=== PATIENT | female | born 1970 | race Caucasian/White ===

== ENCOUNTER 2019-02-12 08:08 | Emergency (ER) | payer MEDICAID ==
[~2019-02-12] VITALS: Ht 162.6 cm; Wt 70.5 kg
[2019-02-12 08:22] VITALS: Ht 162.6 cm; Wt 70.5 kg
[2019-02-12] MEDS ORDERED: ATIVAN1 MG PO (08:25)
[2019-02-12] MEDS ORDERED: IBUPROFEN400 MG PO (08:25)
[2019-02-12 09:17] LABS: ALBUMIN 3.8 g/dL (3.4-5.0); ALKALINE PHOSPHATASE 52 U/L (46-116); ALT (SGPT) 25 U/L (10-68); BILIRUBIN - TOTAL 0.72 mg/dL (0.2-1.3); CALC OSMOLALITY 272 mosm/kg (275-300); CALCIUM 8.7 mg/dL (8.5-10.1); CHLORIDE - SERUM 99 mmol/L (98-107); CREATININE - SERUM 0.9 mg/dL (0.6-1.3); GLUCOSE 97 mg/dL (74-106); HEMOGLOBIN 14.2 g/dL (12-16); LYMPHOCYTES 23.8 % (15-50); MCH 31.4 pg (26.0-34.0); MCHC 34.6 g/dL (31.0-37.0); MCV 90.7 fL (80.0-100.0); NEUTROPHILS 63.6 % (40-80); PLATELET COUNT 243 10x3/uL (130-400); POTASSIUM - SERUM 3.4 mmol/L (3.5-5.1); PROTEIN - SERUM 7.4 g/dL (6.4-8.2); RBC 4.52 10x6/uL (4.00-5.40); RDW 12.2 % (11.5-14.5); SODIUM 136 mmol/L (136-145); UREA NITROGEN 14 mg/dL (7-18); WBC 5.2 10x3/uL (4.8-10.8); eGFR NON AFRICAN AMERICAN 71 mL/min (90-120)
[2019-02-12 09:20] LABS: APTT 26.7 SECONDS (22.8-39.4); INR 0.96 (0.85-1.17); PROTIME 12.3 SECONDS (11.6-15.0)
[2019-02-12 09:36] LABS: CKMB 0.4 U/L (0.0-3.6); CREATINE KINASE 107 UL (21-215); MAGNESIUM - SERUM 1.6 mg/dL (1.8-2.4)
[2019-02-12 09:38] LABS: TROPONIN-I < 0.017 ng/mL (0.000-0.060)
[2019-02-12] MEDS ORDERED: IBUPROFEN800 MG PO (10:26)
[2019-02-12] MEDS ORDERED: CYCLOBENZAPRINE10 MG PO (10:26)
[2019-02-12] MEDS ORDERED: ACETAMINOPHEN500 M1 PO (10:26)
[2019-02-12 11:07] VITALS: BP 142/88
== END 2019-02-12 10:43 | disposition home or self-care (01) ==
LOC: D.ER 08:08
PROVIDERS: Family Medicine
DX: R07.89 Other chest pain (principal); S29.011A Strain of muscle and tendon of front wall of thorax, initial encounter; X58.XXXA Exposure to other specified factors, initial encounter; Y93.89 Activity, other specified; Y92.89 Other specified places as the place of occurrence of the external cause

== ENCOUNTER 2020-06-12 06:24 | Inpatient (IN) | payer MEDICAID ==
[2020-06-12] VITALS (10 sets, daily range): BP systolic 114–149; BP diastolic 68–86; BMI 27.5
[~2020-06-12] VITALS: Ht 162.6 cm; Wt 72.6 kg
[~2020-06-12 06:24] MED LIST: ACETAMINOPHEN500 M1 PO; ATIVAN1 MG PO; CYCLOBENZAPRINE10 MG PO; IBUPROFEN400 MG PO; IBUPROFEN800 MG PO
--- NOTE | 2020-06-12 06:38 | NUR ---
UA SENT TO LAB
[2020-06-12 06:53] LABS: BASOPHILS 0.1 % (0-2); EOSINOPHILS 0 % (0-7); HEMATOCRIT 43.9 % (36.0-48.0); HEMOGLOBIN 14.9 g/dL (12-16); IMMATURE GRANULOCYTES 0.2 % (0-5); LYMPHOCYTES 8.6 % (15-50); MCH 30.1 pg (26.0-34.0); MCHC 33.9 g/dL (31.0-37.0); MCV 88.7 fL (80.0-100.0); MEAN PLATELET VOLUME 9.2 fL (7.4-10.4); MONOCYTES 3.9 % (2-11); NEUTROPHILS 87.2 % (40-80); PLATELET COUNT 271 10x3/uL (130-400); RBC 4.95 10x6/uL (4.00-5.40); RDW 12.7 % (11.5-14.5); WBC 11.7 10x3/uL (4.8-10.8)
[2020-06-12 07:16] LABS: CALC OSMOLALITY 270 mosm/kg (275-300); CALCIUM 8.8 mg/dL (8.5-10.1); CARBON DIOXIDE 23.8 mmol/L (21.0-32.0); CHLORIDE - SERUM 101 mmol/L (98-107); CREATININE - SERUM 0.9 mg/dL (0.6-1.3); GLUCOSE 118 mg/dL (74-106); SODIUM 135 mmol/L (136-145); UREA NITROGEN 12 mg/dL (7-18); eGFR NON AFRICAN AMERICAN 70 mL/min (90-120)
--- NOTE | 2020-06-12 07:20 | NUR ---
ASSUMED CARE OF PT. SITTING UPRIGHT IN BED GUARDING RIGHT FLANK. RESP EVEN/UNLABORED. SKIN W/D/P. INFORMED DR MORA OF NEED FOR PAIN MED. NEW ORDERS RCVD/ADMIN
[2020-06-12 07:39] LABS: ALBUMIN 4.7 g/dL (3.4-5.0); ALKALINE PHOSPHATASE 67 U/L (30-120); ALT (SGPT) 33 U/L (10-68); AMYLASE - SERUM 47 U/L (25-115); BILIRUBIN - TOTAL 0.21 mg/dL (0.2-1.3); LIPASE 196 U/L (73-393); PROTEIN - SERUM 8.5 g/dL (6.4-8.2); TROPONIN-I < 0.017 ng/mL (0.000-0.060)
[2020-06-12 08:13] LABS: HCG URINE NEGATIVE (NEGATIVE)
[2020-06-12 08:17] LABS: BILIRUBIN NEGATIVE (NEGATIVE); KETONE NEGATIVE (NEGATIVE); NITRITE NEGATIVE (NEGATIVE); UROBILINOGEN NORMAL mg/dL (< 2)
[2020-06-12 08:18] LABS: BACTERIA FEW HPF (NONE SEEN); EPITHELIAL CELLS 0-5 /hpf (0-5); WHITE CELLS - URINE 0-5 HPF (0-4)
[2020-06-12 08:19] LABS: AMORPHOUS SEDIMENT >1+ LPF (NONE SEEN)
--- NOTE | 2020-06-12 09:31 | NUR ---
RTND FROM CT. RESTING UPRIGHT IN BED. "PAIN IS BETTER" FAMILY ATR BS
[2020-06-12 10:42] LABS: APTT 23.7 SECONDS (22.8-39.4); INR 0.9 (0.85-1.17); PROTIME 12.2 SECONDS (11.6-15.0)
--- NOTE | 2020-06-12 10:51 | NUR ---
CHEST TUBE PLACEMENT EXPL TO PT, VERB UNDER. CONSENT SIGNED/WITNESSED
--- NOTE | 2020-06-12 11:06 | NUR ---
TO IR FOR CT PLACEMENT/CONDITION STABLE
--- NOTE | 2020-06-12 12:26 | NUR ---
BACK FROM SURGERY, RIGHT SIDE CHEST TUBE IN PLACE.
--- NOTE | 2020-06-12 12:45 | NUR ---
REGULAR DIET SERVED/APPETITE GOOD
--- NOTE | 2020-06-12 13:00 | NUR ---
RESTING IN BED. C/O MILD PAIN AT REST AND INCREASED PAIN "WHEN I TAKE A DEEP BREATH OR MOVE" CT IN PLACE, SUBSTERNAL WITH DRSG D/I. CT SET @ 20 CM DRY SUCTION AND 80 CONTINUOUS WALL SUCTION. NO DRAINAGE NOTED IN PLEURAVAC
--- NOTE | 2020-06-12 17:30 | NUR ---
ASSITED UP TO BSC, JOSE WELL, VOIDED 300 ML CLEAR YELLOW URINE
--- NOTE | 2020-06-12 17:47 | NUR ---
REPORT TO MARIA ESTHER CHING
--- NOTE | 2020-06-12 17:48 | NUR ---
NASAL SWAB [id number], LABELED AT BS AND SENT TO LAB
--- NOTE | 2020-06-12 19:00 | NUR ---
RECEIVED TO FLOOR FROM ER, ADMISSION COMPLETE, MEDS REVIEWED, ORIENTED TO ROOM, CHEST TUBE TO SUCTION, DENIES NEEDS, A&O X3
[2020-06-12] MEDS ORDERED: ATIVAN1 MG PO (19:24)
--- NOTE | 2020-06-13 00:09 | NUR ---
I have reviewed this patient and I concur with the Shift Assessment completed by the Licensed Practical Nurse today this shift.
[2020-06-13 05:45] LABS: BASOPHILS 0.3 % (0-2); EOSINOPHILS 2.3 % (0-7); HEMATOCRIT 36.3 % (36.0-48.0); IMMATURE GRANULOCYTES 0.3 % (0-5); LYMPHOCYTES 24.4 % (15-50); MCH 29.4 pg (26.0-34.0); MCHC 32.5 g/dL (31.0-37.0); MCV 90.3 fL (80.0-100.0); MEAN PLATELET VOLUME 9.3 fL (7.4-10.4); MONOCYTES 11.6 % (2-11); NEUTROPHILS 61.1 % (40-80); RBC 4.02 10x6/uL (4.00-5.40); RDW 12.9 % (11.5-14.5)
[2020-06-13 05:48] LABS: HEMOGLOBIN 11.8 g/dL (12-16); PLATELET COUNT 210 10x3/uL (130-400); WBC 6.6 10x3/uL (4.8-10.8)
[2020-06-13 05:57] VITALS: BP 163/93
[2020-06-13 06:03] LABS: ANION GAP 9.4 mmol/L (8-16); CARBON DIOXIDE 25.3 mmol/L (21.0-32.0); CREATININE - SERUM 0.9 mg/dL (0.6-1.3); MAGNESIUM - SERUM 1.7 mg/dL (1.8-2.4); POTASSIUM - SERUM 3.7 mmol/L (3.5-5.1)
--- NOTE | 2020-06-13 09:00 | NUR ---
ALERT AND ORIENTED X4. CHEST TUBE DRESSING INTACT TO RT. MIDSTERNAL CHEST TO CONTINIOUS SUCTION. BREATH SOUNDS SLIGHTLY DIMINISHED TO RLQ CHST ANTERIOR OTHERWISE CTA. DENIES ANY DYSPNEA. UP ADLIB. ENCOURAGED TO USE CALL LIGHT FOR ASSSIT.
[2020-06-13 12:00] VITALS: BP 146/80
--- NOTE | 2020-06-13 18:40 | NUR ---
PATIENT STATED THOUGHT SHE HAD OVERDONE IT STANDING AND IS HURTING 04/27. MORPHINE 4MG GIVEN SLOW IVF WITH PULSE OX 99%. CHEST TUBE TO SUCTION.
--- NOTE | 2020-06-13 19:00 | NUR ---
RECEIVED REPORT, ASSSUMED CARE, DENIES NEEDS, CALL LIGHT IN REACH, BED LOWEST POSITION, IV PATENT, BREATHING EVEN UNLABORED, I.S. AT BEDSIDE ENCOURAGED USE, CHEST TUBE PATENT
[2020-06-13 20:00] VITALS: BP 166/81
[2020-06-13 23:58] VITALS: BP 158/91
--- NOTE | 2020-06-14 02:52 | NUR ---
I have reviewed this patient and I concur with the Shift Assessment completed by the Licensed Practical Nurse today this shift.
[2020-06-14 04:00] VITALS: BP 156/82
[2020-06-14 06:13] LABS: BASOPHILS 0.7 % (0-2); HEMATOCRIT 36.7 % (36.0-48.0); IMMATURE GRANULOCYTES 0.6 % (0-5); LYMPHOCYTES 28.8 % (15-50); MCH 29.6 pg (26.0-34.0); MCHC 32.7 g/dL (31.0-37.0); MCV 90.4 fL (80.0-100.0); MEAN PLATELET VOLUME 9.3 fL (7.4-10.4); MONOCYTES 10.5 % (2-11); NEUTROPHILS 52.4 % (40-80); PLATELET COUNT 190 10x3/uL (130-400); RBC 4.06 10x6/uL (4.00-5.40); RDW 12.6 % (11.5-14.5); WBC 5.4 10x3/uL (4.8-10.8)
[2020-06-14 06:27] LABS: CALC OSMOLALITY 275 mosm/kg (275-300); CALCIUM 8.5 mg/dL (8.5-10.1); CARBON DIOXIDE 28.5 mmol/L (21.0-32.0); CHLORIDE - SERUM 103 mmol/L (98-107); CREATININE - SERUM 0.7 mg/dL (0.6-1.3); GLUCOSE 93 mg/dL (74-106); MAGNESIUM - SERUM 1.8 mg/dL (1.8-2.4); POTASSIUM - SERUM 3.6 mmol/L (3.5-5.1); SODIUM 139 mmol/L (136-145); eGFR NON AFRICAN AMERICAN > 90 mL/min (90-120)
[2020-06-14 06:29] LABS: UREA NITROGEN 7 mg/dL (7-18)
[2020-06-14 08:00] VITALS: BP 139/88
--- NOTE | 2020-06-14 09:48 | NUR ---
UP ADLIB WITH CHEST TUBE INTACT TO SUCTION TO MIDCHEST. LUNGS CTA X4 ANTERIOR WITH SMALL AMOUT OF SEROUS DRAINAGE TO TUBE. PATIENT STATES NAPROXEN EFECTIVE FOR PAIN MANAGEMENT. ENCOURAGED TO USE CALL LIGHT FOR ASSSIT.
[2020-06-14 12:49] VITALS: BP 149/90
[2020-06-14 15:00] VITALS: BP 156/85
--- NOTE | 2020-06-14 19:00 | NUR ---
RECEIVED REPORT, ASSSUMED CARE, DENIES NEEDS, CALL LIGHT IN REACH, BED LOWEST POSITION, IV OUT, BREATHING EVEN UNLABORED, I.S. AT BEDSIDE ENCOURAGED USE, CHEST TUBE PATENT
--- NOTE | 2020-06-14 19:33 | NUR ---
PAGED JHONY BENNETT, PT REFUSING PIV, JHONY BENNETT STATED PT HAS TO HAVE IV ACCESS, MAY PLACE ORDER FOR PICC LINE OR CVL TO BE PLACED IN AM, NORCO 5MG 1 PO Q6P ORDERED FOR PAIN
[2020-06-14 20:00] VITALS: BP 155/93
--- NOTE | 2020-06-14 20:00 | NUR ---
IV RESITED TO L WRIST ONE STICK 22G
[2020-06-15] VITALS: BP 135/88
--- NOTE | 2020-06-15 02:00 | NUR ---
I have reviewed this patient and I concur with the Shift Assessment completed by the Licensed Practical Nurse today this shift.
[2020-06-15 04:00] VITALS: BP 150/67
[2020-06-15 06:12] LABS: HEMATOCRIT 36.8 % (36.0-48.0); HEMOGLOBIN 12.4 g/dL (12-16); MCH 30.2 pg (26.0-34.0); MCHC 33.7 g/dL (31.0-37.0); MCV 89.8 fL (80.0-100.0); MEAN PLATELET VOLUME 9.6 fL (7.4-10.4); PLATELET COUNT 203 10x3/uL (130-400); RDW 12.5 % (11.5-14.5); WBC 5.2 10x3/uL (4.8-10.8)
[2020-06-15 06:24] LABS: CALC OSMOLALITY 272 mosm/kg (275-300); CALCIUM 8.9 mg/dL (8.5-10.1); CARBON DIOXIDE 26.4 mmol/L (21.0-32.0); CHLORIDE - SERUM 102 mmol/L (98-107); CREATININE - SERUM 0.6 mg/dL (0.6-1.3); GLUCOSE 98 mg/dL (74-106); MAGNESIUM - SERUM 1.9 mg/dL (1.8-2.4); POTASSIUM - SERUM 3.5 mmol/L (3.5-5.1); SODIUM 137 mmol/L (136-145); eGFR NON AFRICAN AMERICAN > 90 mL/min (90-120)
[2020-06-15 06:27] LABS: UREA NITROGEN 9 mg/dL (7-18)
[2020-06-15 08:13] VITALS: BP 177/100
[2020-06-15 09:44] LABS: EOSINOPHILS 12 % (0-7); LYMPHOCYTES 27 % (15-50); MONOCYTES 11 % (2-11); NEUTROPHILS 50 % (40-80); PLATELET ESTIMATE NORMAL; ROULEAUX OCC
[2020-06-15 09:45] LABS: ANISOCYTOSIS OCC; HYPOCHROMASIA OCC
[2020-06-15 12:04] VITALS: BP 154/79
--- NOTE | 2020-06-15 13:04 | NUR ---
PT REQUESTED PAIN MEDICATION STATED PAIN IS AT AN 8. TOO EARLY FOR PRN IV MEDICATON, ADMINISTERED PO. NO OTHER NEEDS VOICED. CONTINUE WITH PLAN OF CARE
[2020-06-15 13:48] VITALS: Ht 162.6 cm; Wt 72.6 kg
--- NOTE | 2020-06-15 15:22 | MORECARE ---
CASE MANAGEMENT DISCHARGE SUMMARY PATIENT: JUAN BUCKLEY UNIT: [id number] ADM DATE: 06/12/20 AGE: 49 : 70 SEX: F ROOM/BED: D.2217 AUTHOR: ALEAH BLANK PHYSICIAN: REFERRING PHYSICIAN: CUONG LUNDBERG MD DATE OF SERVICE: 06/15/20 Discharge Plan Patient Name: JUAN BUCKLEY Facility: [facility]:[place] : 1970 Planned Disposition: Home or Self Care Anticipated Discharge Date: Discharge Date: Expected LOS: Initial Reviewer: [email or web address] Initial Review Date: 06/12/2020 Generated: 06/15/20 4:22 pm Patient Name: JUAN BUCKLEY Page [id number] at 1522 All edits/amendments must be made on the electronic document DICTATION DATE: 06/15/20 1522 CRYPTOGRAPHIC MACHINE OPERATOR: ROBINSON 06/15/20 1522 RPT#: [id number] DC DATE: STATUS: ADM IN [facility] [address] [place] [address] END OF REPORT
--- NOTE | 2020-06-15 15:31 | MORECARE ---
CASE MANAGEMENT DISCHARGE SUMMARY PATIENT: JUAN BUCKLEY UNIT: [id number] ADM DATE: 06/12/20 AGE: 49 : 70 SEX: F ROOM/BED: D.2217 AUTHOR: ABHAY,DOC PHYSICIAN: REFERRING PHYSICIAN: CUONG LUNDBERG MD DATE OF SERVICE: 06/15/20 Discharge Plan Patient Name: JUAN BUCKLEY Facility: [facility]:[place] : 1970 Planned Disposition: Home or Self Care Anticipated Discharge Date: Discharge Date: Expected LOS: Initial Reviewer: [email or web address] Initial Review Date: 06/12/2020 Generated: 06/15/20 4:30 pm Comments DCP- Discharge Planning Updated by [email or web address]: Juliet Ulloa on 06/15/20 2:[address] Patient Name: JUAN BUCKLEY Admission Status: ER Accout number: [id number] Admission Date: 06-12-2020 : 1970 Admission Diagnosis: Attending: TAMIKA, Current LOS: 3 Anticipated DC Date: Planned Disposition: Home or Self Care Primary Insurance: [place] [employer] RICARDA Discharge Planning Comments: CM met with patient to complete initial dc planning assessment. CM educated patient on the CM role and verbal consent given by patient to complete assessment. Patient lives at home with her son's where she is independent with her care. At discharge patient plans to return home and feels this is a safe discharge. Her mother also lives on the same property and will be her carry all driver home. CM discussed availability of home health, rehab services, and medical equipment. Patient denied known discharge needs at this time. CM will continue to follow and will assist as needed with dc plans/needs. Baby Doctor: Juilet Ulloa DCPIA - Discharge Planning Initial Assessment Updated by [email or web address]: Juliet Ulloa on 06/15/20 3:23 pm * Is the patient Alert and Oriented? Yes * How many steps to enter\exit or inside your home? * PCP [facility] family medicine * Pharmacy [address] * Preadmission Environment Home with Family * ADLs Independent * Equipment None * List name and contact numbers for known caregivers / representatives who currently or will assist patient after discharge: tank botello ( mother) [phone] * Verbal permission to speak to the caregivers and representatives has been obtained from the patient. N/A * Community resources currently utilized None * Additional services required to return to the preadmission environment? No * Can the patient safely return to the preadmission environment? Yes * Has this patient been hospitalized within the prior 30 days at any hospital? No Last DP export: 06/15/20 2:23 p Patient Name: JUAN BUCKLEY Page [id number] at 1531 All edits/amendments must be made on the electronic document DICTATION DATE: 06/15/20 153 COP BREAKER: ROBINSON 06/15/201529 RPT#: [id number] DC DATE: STATUS: ADM IN [facility] [address] [place] [address] END OF REPORT
[2020-06-15 16:00] VITALS: BP 146/84
--- NOTE | 2020-06-15 19:00 | NUR ---
BEDSIDE REPORT RECEIVED AND CARE OF PT ASSUMED. PT LYING IN SUPINE POSITION WITH EYES CLOSED AND EASY RESPIRATIONS. WILL MONITOR FOR NEEDS.
[2020-06-15 20:00] VITALS: BP 144/86
--- NOTE | 2020-06-15 20:25 | NUR ---
GAVE NORCO PO PER PRN ORDER, PER PT REQUEST FOR PAIN. RE-HEATED HOT PACK.
--- NOTE | 2020-06-15 21:22 | NUR ---
PT REFUSED SCHEDULED TORADOL. WILL CONTINUE TO MONITOR FOR NEEDS.
[2020-06-16 04:00] VITALS: BP 151/91
[2020-06-16 06:32] LABS: BASOPHILS 0.7 % (0-2); EOSINOPHILS 7.7 % (0-7); HEMATOCRIT 37.8 % (36.0-48.0); HEMOGLOBIN 12.4 g/dL (12-16); IMMATURE GRANULOCYTES 0.2 % (0-5); LYMPHOCYTES 28.5 % (15-50); MCH 29.4 pg (26.0-34.0); MCHC 32.8 g/dL (31.0-37.0); MCV 89.6 fL (80.0-100.0); MEAN PLATELET VOLUME 9.3 fL (7.4-10.4); MONOCYTES 12.6 % (2-11); NEUTROPHILS 50.3 % (40-80); PLATELET COUNT 213 10x3/uL (130-400); RBC 4.22 10x6/uL (4.00-5.40); RDW 12.6 % (11.5-14.5); WBC 4.5 10x3/uL (4.8-10.8)
[2020-06-16 06:34] LABS: CALC OSMOLALITY 270 mosm/kg (275-300); CALCIUM 9.1 mg/dL (8.5-10.1); CARBON DIOXIDE 27.9 mmol/L (21.0-32.0); CHLORIDE - SERUM 101 mmol/L (98-107); CREATININE - SERUM 0.7 mg/dL (0.6-1.3); GLUCOSE 99 mg/dL (74-106); MAGNESIUM - SERUM 1.9 mg/dL (1.8-2.4); SODIUM 136 mmol/L (136-145); UREA NITROGEN 9 mg/dL (7-18); eGFR NON AFRICAN AMERICAN > 90 mL/min (90-120)
[2020-06-16 06:35] LABS: POTASSIUM - SERUM 4.3 mmol/L (3.5-5.1)
[2020-06-16 08:58] VITALS: BP 139/85
[2020-06-16] MEDS ORDERED: HYDROCODON-ACE1 EAC7 PO ×2 (10:10→10:26)
--- NOTE | 2020-06-16 12:10 | NUR ---
PT DC, WENT OVER PT PAPERWORK AND FOLLOW UP APPOINTMENTS, ALL QUESTIONS ANSWERED. IV DC WITH CATHETER INTACT
--- NOTE | 2020-06-18 06:52 | MORECARE ---
CASE MANAGEMENT DISCHARGE SUMMARY PATIENT: JUAN BUCKLEY UNIT: [id number] ADM DATE: 06/12/20 AGE: 49 : 70 SEX: F ROOM/BED: D.2217 AUTHOR: ABHAYDOC PHYSICIAN: REFERRING PHYSICIAN: CUONG LUNDBERG MD DATE OF SERVICE: 06/18/20 Discharge Plan Patient Name: JUAN BUCKLEY Facility: [facility]:[place] : 1970 Planned Disposition: Home or Self Care Anticipated Discharge Date: Discharge Date: 06/16/2020 Expected LOS: Initial Reviewer: [email or web address] Initial Review Date: 06/12/2020 Generated: 06/18/20 7:51 am Comments DCP- Discharge Planning Updated by [email or web address]: Juliet Ulloa on 06/15/20 2:[address] Patient Name: JUAN BUCKLEY Admission Status: ER Accout number: [id number] Admission Date: 06-12-2020 : 1970 Admission Diagnosis: Attending: TAMIKA, Current LOS: 3 Anticipated DC Date: Planned Disposition: Home or Self Care Primary Insurance: [place] [employer] RICARDA Discharge Planning Comments: CM met with patient to complete initial dc planning assessment. CM educated patient on the CM role and verbal consent given by patient to complete assessment. Patient lives at home with her son's where she is independent with her care. At discharge patient plans to return home and feels this is a safe discharge. Her mother also lives on the same property and will be her truss driver helper home. CM discussed availability of home health, rehab services, and medical equipment. Patient denied known discharge needs at this time. CM will continue to follow and will assist as needed with dc plans/needs. Drop Forger: Juliet Ulloa DCPIA - Discharge Planning Initial Assessment Updated by [email or web address]: Juliet Ulloa on 06/15/20 3:23 pm * Is the patient Alert and Oriented? Yes * How many steps to enter\exit or inside your home? * PCP [facility] family medicine * Pharmacy [address] * Preadmission Environment Home with Family * ADLs Independent * Equipment None * List name and contact numbers for known caregivers / representatives who currently or will assist patient after discharge: tank Jacobson mother) [phone] * Verbal permission to speak to the caregivers and representatives has been obtained from the patient. N/A * Community resources currently utilized None * Additional services required to return to the preadmission environment? No * Can the patient safely return to the preadmission environment? Yes * Has this patient been hospitalized within the prior 30 days at any hospital? No Last DP export: 06/15/20 2:31 p Patient Name: JUAN BUCKLEY Page [phone] at 0652 All edits/amendments must be made on the electronic document DICTATION DATE: 06/18/20650 TREADLE CUT OFF SAW OPERATOR: ROBINSON 06/18/20650 RPT#: [id number] DC DATE:06/16/20 STATUS: DIS IN [facility] [address] [place] [address] END OF REPORT
== END 2020-06-16 12:11 | disposition home or self-care (01) | DRG 200 ==
LOC: D.ER 06:24 → D.MS 11:28
PROVIDERS: Emergency Medicine; Family Medicine; Specialist; ADMIT Family Medicine; ATTEND Family Medicine
PROC: 0W9930Z Drainage of Right Pleural Cavity with Drainage Device, Percutaneous Approach (ICD-10-PCS; principal; 2020-06-12 11:10)
DX: J93.83 Other pneumothorax (principal); J98.11 Atelectasis